=== PATIENT | male | born 1990 | race Caucasian/White ===

== ENCOUNTER 2017-10-31 23:01 | Emergency (ER) | payer MEDICAID ==
[2017-10-31 23:21] VITALS: BP 145/85
[2017-10-31] MEDS ORDERED: ALBU8.5H IH (23:23)
--- NOTE | 2017-10-31 23:26 | ER Report ---
History and Physical Time Seen By MD: 23:11 Hx. of Stated Complaint: PT HAD ASTHMA ATTACK ON SCENE. HE REPORTS HE IS BREATHING BETTER AFTER NEB TREATMENT. PT HAS STAPH INFECTION ON RIGHT HAND. PT HAS MADE COMMENTS ABOUT WANTING TO HARM SELF. HPI/ROS CHIEF COMPLAINT: Shortness of breath, asthma exacerbation HISTORY OF PRESENT ILLNESS: 27-year-old male [facility] to find a place to stay. Patient was traveling with some friends. He went from [place] to [place] for a job. He was looking to get a place to stay. He had an asthma attack. He doesn't have his inhaler. He ran out. His having difficulty breathing. He felt syncopal. He also has a large open wound on the dorsal aspect of his right hand. He states that 6 weeks ago he had a surgery for a tendon infection from a staph infection. He was on IV Rocephin for one week and then they switched him over to orals. He states he was supposed to be on Rocephin for 4 weeks, but he was unable to make it into get that treatment, so they switched him to orals He ran out of oral Keflex 500 mg one week ago. He has a productive wet cough and an upper respiratory infection. Patient's been self cutting. When asked, patient denies actual plan for suicidal ideation. REVIEW OF SYSTEMS: Respiratory: No cough, no dyspnea. Cardiovascular: No chest pain, no palpitations. Gastrointestinal: No vomiting, no abdominal pain. Musculoskeletal: No back pain. Allergies: Coded Allergies: No Known Drug Allergies (Unverified , 10/31/17) Home Meds Active Scripts Prednisone (PREDNISONE) 20 Mg Tablet, 40 MG PO QDAY for reduce lung inflammation , #10 2 tabs by mouth daily for 5 days Prov:LINCOLN JOHNSTON DO 10/31/17 Cephalexin 500 Mg Tab (KEFLEX 500 MG TAB) 500 Mg Tablet, 500 MG PO TID for infection, #60 TAB Prov:LINCOLN JOHNSTON DO 10/31/17 Reported Medications Albuterol Sulfate 90 Mcg/Act (PROAIR HFA 90 MCG/ACT) 8.5 Gm Hfa.aer.ad, 1-2 PUFF IH 3-4XD, INHALER 10/31/17 Reviewed Nurses Notes: Yes Old Medical Records Reviewed: Yes Constitutional Vital Sign - Last 24 Hours 10/31/17 10/31/17 10/31/17 10/31/17 23:02 23:21 23:31 23:36 Temp 97.4 Pulse 81 77 69 Resp 18 B/P (MAP) 148/95 145/85 (105) Pulse Ox 94 93 93 O2 Delivery Room Air 10/31/17 10/31/17 10/31/17 10/31/17 23:40 23:40 23:46 23:51 Pulse 84 Resp 16 16 Pulse Ox 92 O2 Delivery Room Air Physical Exam General Appearance: The patient is alert, has no immediate need for airway protection and no current signs of toxicity. Vital signs stable, afebrile, pulse ox normal HEENT: Pupils equal and round no injection. Pharynx without redness or exudate , mucous. Membranes are moist Respiratory: Chest is non tender, lungs are clear to auscultation. Cardiac: regular rate and rhythm Gastrointestinal: Abdomen is soft and non tender, no masses, bowel sounds normal. Musculoskeletal: Neck: Neck is supple and non tender. Extremities have full range of motion and are non tender. Skin: No rashes or lesions. DIFFERENTIAL DIAGNOSIS: After history and physical exam differential diagnosis was considered for shortness of breath including but not limited to pulmonary infectious process, COPD, asthma, pulmonary embolus and congestive heart failure.depression including functional and major depression, situational depression, medication side effect, drugs and alcohol abuse. Medical Decision Making ED Course/Re-evaluation ED Course Patient was admitted to an examination room. H&P was done. The differential diagnoses was considered. On clinical examination. Patient has stable vital signs. He is mildly expiratory wheezing. He is treated with a DuoNeb and provided albuterol inhaler. Patient is medicated with prednisone 40 mg by mouth. He'll be discharged on a taper of 40 mg 3 days, 20 mg 3 days. Patient denies suicidal or homicidal ideation. Patient was abandoned by his friends here in [place] [address] on his way back to [place]. I do not think the patient is holdable for mental health evaluation. Patient's prescribed Keflex antibiotics for his chronic right open hand wound from surgery 6 weeks ago. He' s advised to follow-up with his surgeon. Decision to Disposition Date: October 31, 2017 Decision to Disposition Time: 23:37 Depart Departure Latest Vital Signs Vital Signs Date Time Temp Pulse Resp B/P (MAP) Pulse Ox O2 Delivery O2 Flow Rate FiO2 10/31/17 23:51 84 92 10/31/17 23:46 16 10/31/17 23:40 Room Air 10/31/17 23:21 145/85 (105) 10/31/17 23:02 97.4 Impression: Primary Impression: Asthma exacerbation Additional Impression: Infected open wound Condition: Improved Disposition: HOME OR SELF-CARE New Scripts Prednisone (PREDNISONE) 20 Mg Tablet 40 MG PO QDAY for reduce lung inflammation, #10 2 tabs by mouth daily for 5 days Prov: LINCOLN JOHNSTON DO 10/31/17 Cephalexin 500 Mg Tab (KEFLEX 500 MG TAB) 500 Mg Tablet 500 MG PO TID for infection, #60 TAB Prov: LINCOLN JOHNSTON DO 10/31/17 Patient Instructions: Asthma (ED), Chronic Wound Care (ED) Problem Qualifiers Primary Impression: Asthma exacerbation Asthma severity: mild Asthma persistence: intermittent Qualified Codes: J45.21 - Mild intermittent asthma with (acute) exacerbation LINCOLN JOHNSTON DO October 31, 2017 23:26
[2017-10-31] MEDS ORDERED: ALBUTEROL/IPRATROPIUM 3 ML NEB NEB ONE (23:35)
[2017-10-31] MEDS ORDERED: CEPHALEXIN MONO 500 MG CAP PO ONE (23:35)
[2017-10-31] MEDS ORDERED: predniSONE 20 MG TAB PO ONE (23:35)
[2017-10-31] MEDS ORDERED: PRED20TA6 PO (23:42)
[2017-10-31] MEDS ORDERED: CEPH500T7 PO (23:42)
[2017-10-31] MEDS: ALBUTEROL SULFATE 90 MCG/ACT 8.5 GM HNH INH PRN ×2 (23:44→23:58)
== END 2017-10-31 23:55 | disposition home or self-care (01) ==
LOC: ER 23:13
DX: J45.21 Mild intermittent asthma with (acute) exacerbation (principal); S61.401A Unspecified open wound of right hand, initial encounter
CPT/HCPCS: 94640; J7512; J7620; 85025; 99282

== ENCOUNTER → 2017-10-31 | Outpatient (CLI) | payer MEDICAID ==
[~2017-10-31] MED LIST: ALBU8.5H IH; CEPH500T7 PO; PRED20TA6 PO
== END ==
LOC: AMB 22:38
PROVIDERS: ATTEND Nurse Practitioner
DX: R06.00 Dyspnea, unspecified (principal); J45.909 Unspecified asthma, uncomplicated; S61.411A Laceration without foreign body of right hand, initial encounter
CPT/HCPCS: A0425; A0427